=== PATIENT | female | born 1970 | race Caucasian/White ===

== ENCOUNTER 2018-05-22 03:45 | Emergency (ER) | payer OTHER, SELFPAY ==
[2018-05-22 03:46] VITALS: BP 138/82; PULSE 86; RESP 16; TEMP 36.6; O2SAT 99; BMI 22.8
--- NOTE | 2018-05-22 04:23 | ED.DCSUM_ITS ---
- ER Visit Summary Date of Service: 05/22/18 Chief Complaint: [Headache] History of Present Illness: The patient is a 47 F [who presents the emergency department with headache. It started approximately 1:32 AM. It is behind the right eye. She had associated nausea and vomiting. She took Imitrex and Voltaren at home. She been no relief. She has a history of migraines this is very similar to her previous migraines. No fevers chills or meningismus. She is otherwise healthy.] Physical Examination: [] WN WD mild distress actively vomiting PERRL EOMI MMM NECK supple and nontender, no masses RRR no murmur rub or gallop, no peripheral edema, symmetric radial pulses CTAB no respiratory distress ABDOMEN is soft and nontender, normal bowel sounds, no distension, no rebound or guarding SKIN is warm and dry no rashes Alert and Oriented x3, CN II-XII in tact, no motor or sensory deficits, gait normal No lymphadenopathy Test Results: [] Emergency Department Course and Treatment: [Patient was given fluids Ativan Zofran and Toradol. On reevaluation the patient was sleeping her headache was resolved. She is comfortable with discharged home she has home medicines to take she was given precautions for which to return.] Treatment Plan: [] Disposition: [Discharge] Impression: [Migraine headache] This note was generated with [employer] dictation software. It may contain incorrect words, spelling, and punctuation that were not noted in review of the chart prior to signing ED Disposition - Plan for ED Patient: Chief Complaint: Headache Referrals: [facility] Doctor,Out of [Primary Care Provider] -
[2018-05-22] MEDS: Ondansetron 4 MG/2 ML Vial IV (04:36)
[2018-05-22] MEDS: 0.9% Normal Saline 1,000 ML 999 ML IV (04:36)
[2018-05-22] MEDS: DiphenhydrAMINE 50 MG/ML Syringe 25 MG IV (04:37)
[2018-05-22] MEDS: Ketorolac 30 MG/ML Syringe IV (04:39)
[2018-05-22] MEDS: LORazepam 2 MG/ML Syringe 0.5 MG IV (04:42)
--- NOTE | 2018-05-22 05:17 | ED.DEP ---
ED Disposition - Plan for ED Patient: Chief Complaint: Headache Instructions: ED Headache Migraine Referrals: [facility],Out of [Primary Care Provider] -
[2018-05-22 05:40] VITALS: BP 92/53; PULSE 73; RESP 16; O2SAT 100
== END 2018-05-22 05:41 | disposition home or self-care (01) ==
PROVIDERS: Emergency Provider Emergency Medicine
DX: G43.909 Migraine, unspecified, not intractable, without status migrainosus (principal); Z79.899 Other long term (current) drug therapy
CPT/HCPCS: 96361; 96374; 96375; 99283; J7030; A4216; J2405

== ENCOUNTER 2019-05-16 09:29 | Day surgery (SDC) | payer OTHER, SELFPAY ==
[2019-05-16 09:47] VITALS: BP 122/77; PULSE 72; RESP 14; TEMP 36.2; O2SAT 98; BMI 24.7
[2019-05-16 09:55] LABS: Internal QC Validated? YES +Cl - CLEAR BKGD; Pregnancy, Urine Negative Negative
--- NOTE | 2019-05-16 10:29 | PCM.HP.BLA ---
History and Physical Date of Admission: 05/16/19 Was seen in preop. There were no changes to her history and physical
--- NOTE | 2019-05-16 11:00 | EMB_PTH ---
PATIENT: ANNIKA LUCERO LOC: [facility] U#:[id number] AGE/SX: 48/F ROOM: RE05/16/[address]: Dr. Susana Velasco, MDDOB: 1970 BED: DIS: 05/16/2019 SPEC #: [id number] RECD: 05/16/19 15:06 STATUS: PAN TERESA #: [id number] GERSON: 05/16/19 11:[address]: Susana Velasco DEPT: SURGICAL PATHOLOGY RECD BY: Garry Aviles ENTERED: 05/17/19 08:07 SP TYPE: ENDOM BX/C OTHR DR: Out of [facility] Doctor Tissues: Endometrium, NOS Procedures: Surgery Specimen Level IV HEADER OPERATION: Hysteroscopy, D & C Symphion PRE-OP DIAGNOSIS: Abnormal uterine bleeding TISSUE SUBMITTED: Endometrial curettings MICROSCOPIC DIAGNOSIS Endometrial curettings: Secretory pattern endometrium with recent stromal hemorrhage. Minute fragments of endocervical epithelium. CE:shauna 05/20/19 MICROSCOPIC DESCRIPTION Slides are reviewed. GROSS DESCRIPTION Received in fixative is one container labeled with the patient's name and designated endometrial curettings. The specimen consists of multiple irregular fragments of reddish-brown soft tissue and clotted blood that in aggregate measure 2.5 x 1.5 x 0.5 cm. The specimen is totally submitted in two cassettes. / CE:shauna 05/17/19 TC:5 CPT: 69803
--- NOTE | 2019-05-16 11:27 | DCINST_ITS ---
Discharge Diet: No Restrictions Discharge Activity: Return to Normal Activity, May Shower, May Take a Tub Bath - in 2 weeks. Allergies/Adverse Reactions: Allergies No Known Allergies Allergy (Verified 05/10/19 12:46) Medications to take at Discharge Bupropion HCl [Bupropion Xl] 300 mg PO DAILY 05/22/18 Ondansetron [Zofran] 8 mg PO PRN PRN 05/10/19 Sumatriptan Succinate [Imitrex] 100 mg PO .X1 PRN 05/10/19 Primary Care Physician: Tianna Grossman,Out of [Primary Care Provider] - Test Results: Test results from this visit will be discussed in further detail at your follow- up appointment, if applicable.
--- NOTE | 2019-05-16 11:56 | PCM.OPRPT ---
Problem List (1) Abnormal uterine bleeding (AUB) Status: Acute Report of Operation Date of Procedure: 05/16/19 Pre-Operative Diagnosis: aub, endometrial cyst Post-Operative Diagnosis: aub Description of Surgical Findings:: normal cavity, sounded to 8cm. both tubla ostia visulaized Type of Anesthesia:: MAC Specimen's removed: endometrial curettings Drains: none Estimated Blood Loss (mL): <5cc Fluids Replaced: 600 Description of Procedure: Informed consent was obtained the patient was taken the operating room she was placed in supine position. She was given anesthesia. She was then placed in the [facility] where she was prepped and draped in the normal sterile fashion. bladder drained, 50cc. At this time the weighted speculum was placed in the posterior fornix of vagina. Single-tooth tenaculum was used to gently grasp the anterior lip the cervix. At this time the uterine cavity was sounded to approximately 8 cm. Gentle dilatation was performed once adequate dilatation of the cervix was achieved the hysteroscope using normal saline as a distention medium was placed. moderate amount Endometrial tissue . Otherwise no gross abnormalities. Tubal ostia visualized. This time hysteroscopy was complete. resectr device used to do visualized Endometrial curettage- then Sharp curettage was performed. Moderate amount of endometrial tissue removed. This will be sent to pathology for evaluation. no endometrial cyst noted. Procedure was deemed complete successful there are no complications. Anticipated normal postoperative course. Instrument lap count correct ?2. Vaginal Sweep was negative. Grafts/Implants Used: none - Complications none - Admit VTE Documentation VTE Present on Admission: Yes VTE Mechan Device Prophylaxis: SCD's VTE Pharm Prophylaxis ordered?: No
[2019-05-16 12:01] VITALS: BP 122/77; BP 130/80; PULSE 72; RESP 16; TEMP 37; O2SAT 98
[2019-05-16 12:05] VITALS: BP 122/77; BP 126/80; PULSE 69; RESP 16; O2SAT 98
[2019-05-16 12:10] VITALS: BP 116/78; BP 122/77; PULSE 71; RESP 16; O2SAT 100
[2019-05-16 12:15] VITALS: BP 122/77; BP 124/81; RESP 73; TEMP 36.8; O2SAT 100
[2019-05-16 12:43] VITALS: BP 122/77
== END 2019-05-16 12:51 | disposition home or self-care (01) ==
LOC: PAT 09:29 → AC 09:33
PROVIDERS: Referring Provider Obstetrics & Gynecology; Visit Provider Obstetrics & Gynecology
PROC: 0UB98ZZ Excision of Uterus, Via Natural or Artificial Opening Endoscopic (ICD-10-PCS; CPT 58558; principal; 2019-05-16 10:45)
DX: N93.9 Abnormal uterine and vaginal bleeding, unspecified (principal); N85.8 Other specified noninflammatory disorders of uterus; F32.9 Major depressive disorder, single episode, unspecified; Z87.891 Personal history of nicotine dependence; Z79.899 Other long term (current) drug therapy
CPT/HCPCS: 58558; 81025; 88305; J7120